=== PATIENT | female | born 1965 | race Two or more races ===

== ENCOUNTER 2024-03-03 12:30 | Emergency (ER) | payer MEDICAID, OTHER ==
[~2024-03-03] VITALS: Ht 160 cm; Wt 59.3 kg
[2024-03-03 13:14] VITALS: BP 101/80; PULSE 73; RESP 20; TEMP 98.5; O2SAT 100
--- NOTE | 2024-03-03 14:07 | ED.PDOC ---
History of Present Illness(SKN HPI Comments A 58 YEAR OLD FEMALE PRESENTS TO THE ED WITH COMPLAINT OF INSECT BITE OF LEFT ANKLE. PATIENT STATES SHE WAS BITTEN BY AN INSECT ON HER LEFT ANKLE REGION 2 DAYS AGO AND IT NOW EXPERIENCING LEFT ANKLE PAIN, REDNESS, AND SWELLING TO THE AREA. PATIENT DENIES FEVER, CHILLS, SHORTNESS OF BREATH, CHEST PAIN, ABDOMINAL PAIN, NAUSEA, VOMITING, HEADACHE, OR OTHER COMPLAINTS. NO OTHER SYMPTOMS OR MODIFYING FACTORS AT THIS TIME. PATIENT IS ALERT, ORIENTED X 4, AND HAS STEADY GAIT. Chief Complaint: Insect Bite Time Seen by MD: 13:00 History of Present Illness: Nurses Notes, Medications, Allergies Allergies: Coded Allergies: Codeine (Verified Allergy, Unknown, 03/03/24) Information Source: Patient Mode of Arrival: Wheelchair Severity: Moderate Timing: Days Duration: Since onset, Days Prehospital treatment: None Location: Other (LEFT ANKLE) Mechanism: Insect Occurence: Indoors Object: None Condition of Object: None Retained Foreign Body: No Wound Type: Other (INSECT BITE) Immunization Status of Animal: NA Tetanus: Unknown History of: None Associated Signs and Symptoms: Redness, Swelling, Pain Past Medical History PAST MEDICAL HISTORY: Denies Surgical History: Denies all surgeries SOLAR ENERGY SPECIALIST History: No Pertinent SOLAR ENERGY SPECIALIST History Family History Family History: Reviewed,noncontributory to illness Social History Smoker: Non-Smoker Alcohol: Denies ETOH Use Drugs: Denies Drug Use Lives In: Home Constitutional: denies: chills, diaphoresis, fatigue, fever, malaise, sweats, weakness, others EENTM: denies: blurred vision, double vision, ear bleeding, ear discharge, ear drainage, ear pain, ear ringing, eye pain, eye redness, hearing loss, mouth pain, mouth swelling, nasal discharge, nose bleeding, nose congestion, nose pain, photophobia, tearing, throat pain, throat swelling, voice changes, others Respiratory: denies: cough, hemoptysis, orthopnea, SOB at rest, shortness of breath, SOB with excertion, stridor, wheezing, others Cardiovascular: denies: chest pain, dizzy spells, diaphoresis, Dyspnea on exertion, edema, irregular heart beat, left arm pain, lightheadedness, palpitations, PND, syncope, others Gastrointestinal: denies: abdomen distended, abdominal pain, blood streaked bowels, constipated, diarrhea, dysphagia, difficulty swallowing, hematemesis, melena, nausea, poor appetite, poor fluid intake, rectal bleeding, rectal pain, vomiting, others Genitourinary: denies: abnormal vagina bleeding, burning, dyspareunia, dysuria, flank pain, frequency, hematuria, incontinence, pain, , vagina discharge, urgency, others Neurological: denies: dizziness, fainting, headache, left sided numbness, left sided weakness, numbness, paresthesia, pre-existing deficit, right sided numbness, right sided weakness, seizure, speech problems, tingling, tremors, weakness, others Musculoskeletal: denies: back pain, gout, joint pain, joint swelling, muscle pain, muscle stiffness, neck pain, others Integumetry: reports: lesions, wounds, others (INSECT BITE OF LEFT ANKLE); denies: bruises, change in color, change in hair/nails, dryness, laceration, lumps, rash Allergic/Immunocompromised: denies: Difficulty Healing, Frequent Infections, Hives, Itching, others Hematologic/Lymphatic: denies: anemia, blood clots, easy bleeding, easy bruising, swollen glands, others Endocrine: denies: excessive hunger, excessive sweating, excessive thirst, excessive urination, flushing, intolerance to cold, intolerance to heat, unexplained weight gain, unexplained weight loss, others Psychiatric: denies: anxiety, bipolar disorder, depression, hopeless, panic disorder, schizophrenia, sleepless, suicidal, others All Other Systems: Reviewed and Negative Physical Exam General Appearance: Mild Distress, Normal, Other (ANXIOUS ) HEENT: Normal ENT Inspection, PERRL/EOMI, Pharynx Normal, TMs Normal Neck: Full Range of Motion, Non-Tender, Normal, Normal Inspection Respiratory: Chest Non-Tender, Lungs Clear, No Accessory Muscle Use, No Respiratory Distress, Normal Breath Sounds Cardiovascular: No Edema, No JVD, No Murmur, No Gallop, Normal Peripheral Pulses, Regular Rate/Rhythm Breast Exam: Deferred Gastrointestinal: No Organomegaly, Non Tender, No Pulsatile Mass, Normal Bowel Sounds, Soft Genitalia: Deferred Pelvic: Deferred Rectal: Deferred Extremities: No calf tenderness, Normal capillary refill, Normal range of motion, No pedal edema, Tender (WITH INSECT BITE WOUND ON LEFT INNER ANKLE WITH MILD SWELLING AND REDNESS. ) Musculoskeletal : Apperance: Normal Neurologic: Alert, bushel worker II-XII nml as Tested, No Motor Deficits, Normal Affect, Normal Mood, No Sensory Deficits Cerebellar Function: Normal Reflexes: Normal Skin: Dry, Warm, Wounds (A BUMP WITH LOCALIZED REDNESS, TENDERNESS AND MILD SWELLING ON LEFT INNER ANKLE, +BITE CISCO, NO PUS DRAINAGE. ) Peripheral Pulses: 2+ carotid (R), 2+ carotid (L), 2+ dorsalis pedis (R), 2+ dorsalis pedis (L) Lymphatic: No Adenopathy Was a procedure done? Was a procedure done?: No Differential Diagnosis (INTG) Differential Diagnosis: Cellulitis, Contusion, Insect Envenomation, Puncture Wound Differential Diagnosis: Cellulitis, Other (INSECT BITE OF LEFT INNER ANKLE ) Differential Diagnosis: N/A Abscess: N/A Differential Diagnosis: N/A X-Ray, Labs, Meds, VS Vital Signs Date Time Temp Pulse Resp B/P (MAP) Pulse Ox O2 Delivery O2 Flow Rate FiO2 03/03/24 13:14 98.5 73 20 101/80 (87) 100 98.5 03/03/24 13:14 73 20 100 Room Air 03/03/24 13:13 98.5 73 20 101/80 (87) 100 98.5 03/03/24 12:55 98.5 95 17 110/76 (87) 98 Current Medications Medications (Trade) Dose Ordered Sig/Rad Route Start Time Stop Time Status Last Admin Acetaminophen/ Hydrocodone Bitart ([place] 5/325MG Tab) 1 tab ONCE ONCE PO 03/03/24 14:15 03/03/24 14:16 DC 03/03/24 14:17 Ceftriaxone Sodium (Rocephin) 1,000 mg ONCE ONCE IM 03/03/24 14:15 03/03/24 14:16 DC 03/03/24 14:17 X-Ray, Labs, Meds, VS Comment TREATMENT: ROCEPHIN 1 G IM, [place] 5/325 MG P.O. Time of 1ST Reevaluation: 15:00 Reevaluation 1ST: Improved Patient Education/Counseling: Diagnosis, Treatment, Need For Follow Up Family Education/Counseling: Diagnosis, Treatment, Need For Follow Up Medical Screening: No EMC Exist At This Time Departure 1 Departure Time of Disposition: 15:00 Impression: Primary Impression: Insect bite (nonvenomous), left ankle, initial encounter Disposition: HOME / SELF CARE / HOMELESS Condition: Stable Additional Instructions: FOLLOW-UP WITH PCP IN 1 TO 2 DAYS. TAKE MEDICATIONS PRESCRIBED. RETURN TO ED FOR ANY NEW OR WORSENING SYMPTOMS. e-Prescriptions Naproxen (Naproxen) 500 Mg Tab 500 MG PO BID, #30 TAB Prov: MONICA FERRER 03/03/24 Cephalexin Monohydrate (Cephalexin) 500 Mg Cap 1 CAP PO TID, #30 CAP Prov: MONICA FERRER 03/03/24 Sulfamethoxazole W/Trimethopri (Bactrim Ds Tablet) 1 Tab Tb 1 TAB PO BID for 10 Days, #20 TAB Prov: MONICA FERRER 03/03/24 Discharged With: Self, Relative Critical Care Note Critical Care Time?: No Stability Stability form required: No I personally scribed for MONICA FERRER ([email or web address]) on 03/03/24 at 14:07. Electronically submitted by Deven Goss ([email or web address]). MONICA FERRER Mar 03, 2024 14:07
[2024-03-03] MEDS: HYDROcodone-ACET 5/325MG TAB PO ONE (14:17)
[2024-03-03] MEDS: cefTRIAXone SOD 1,000 MG VL IM ONE (14:17)
[2024-03-03] MEDS ORDERED: BACDST PO (14:49)
[2024-03-03] MEDS ORDERED: NAPR-746 PO (14:49)
[2024-03-03] MEDS ORDERED: CEPH500C PO (14:49)
== END 2024-03-03 14:55 | disposition home or self-care (01) ==
LOC: ER 12:30
DX: S90.562A Insect bite (nonvenomous), left ankle, initial encounter (principal); Z88.5 Allergy status to narcotic agent; W57.XXXA Bitten or stung by nonvenomous insect and other nonvenomous arthropods, initial encounter; Y93.89 Activity, other specified; Y92.89 Other specified places as the place of occurrence of the external cause; Y99.8 Other external cause status
CPT/HCPCS: 96372; 99283; J0696